=== PATIENT | female | born 1995 | race Caucasian/White ===

== ENCOUNTER 2023-04-15 10:33 | Emergency (ER) | payer MEDICAID ==
[~2023-04-15] VITALS: Ht 162.6 cm; Wt 66.0 kg
[2023-04-15 11:06] VITALS: TEMP 99.4; O2SAT 100
[2023-04-15] MEDS ORDERED: PENICILLIN V POTASSIUM 250MG TABLET PO SCH (12:00)
[2023-04-15] MEDS ORDERED: DEXAMETHASONE 4MG TABLET PO SCH (12:00)
[2023-04-15] MEDS ORDERED: PENI500T MT (12:05)
[2023-04-15] MEDS ORDERED: KETOROLAC 60MG/2ML VIAL IM SCH (12:15)
[2023-04-15] MEDS: KETOROLAC 30MG/ML VIAL IM SCH ×2 (12:15→12:48)
[2023-04-15 12:48] VITALS: BP 131/77; PULSE 94; RESP 18
== END 2023-04-15 12:48 | disposition home or self-care (01) ==
LOC: ER 10:43
DX: J02.0 Streptococcal pharyngitis (principal)
CPT/HCPCS: 81025; 96372; 99283; J1885; J8540; Z7610

== ENCOUNTER 2023-08-01 18:29 | Emergency (ER) | payer MEDICAID ==
[~2023-08-01] VITALS: Ht 167.6 cm; Wt 68.0 kg
[~2023-08-01 18:29] MED LIST: PENI500T MT
[2023-08-01 18:45] VITALS: BP 120/72; PULSE 80; RESP 20; TEMP 97.8; O2SAT 100
== END 2023-08-01 19:37 | disposition home or self-care (01) ==
LOC: ER 18:29
DX: A15.0 Tuberculosis of lung (principal); F19.90 Other psychoactive substance use, unspecified, uncomplicated
CPT/HCPCS: 71045; 99283